=== PATIENT | female | born 2000 | race Caucasian/White ===

== ENCOUNTER 2023-04-23 15:23 | Emergency (ER) | payer BC, SELFPAY ==
[2023-04-23 15:38] VITALS: BP 112/86; PULSE 107; RESP 18; TEMP 36.6; O2SAT 100
--- NOTE | 2023-04-23 15:45 | ED.FEMALEGU ---
HPI - Female Genitourinary General Chief complaint: Urogenital-Female Stated complaint: UTI SYMPTOMS Time Seen by Provider: 04/23/23 15:45 Source: patient Mode of arrival: ambulatory Limitations: no limitations History of Present Illness HPI Narrative: 23-year-old female presents with complaint of urinary dysuria, frequency, urgency since yesterday. Afebrile. No abdominal or back pain. Patient reports she did home UTI test and was positive. No concern for . All systems reviewed and negative except as noted above. Related Data Home Medications Medication Instructions Recorded Confirmed etonogestrel 0.12 mg-ethinyl vag ring vaginal 04/23/23 estradiol 0.015 mg/24 hr vaginal ring metoprolol succinate 25 mg mg PO 04/23/23 tablet,extended release 24 hr sertraline 25 mg tablet mg 04/23/23 Allergies Allergy/AdvReac Type Severity Reaction Status Date / Time Penicillins Allergy Rash Verified 04/23/23 15:48 Review of Systems Review of Systems: CONSTITUTIONAL: Denies fever, chills, or sweats. EYES: Denies visual changes, redness, or discharge. ENT: Denies rhinorrhea, congestion, sore throat, or otalgia. CARDIOVASCULAR: Denies chest pain, palpitations, or edema. RESPIRATORY: Denies cough or dyspnea. GASTROINTESTINAL: Denies abdominal pain, nausea, vomiting, or diarrhea. GENITOURINARY: Reports dysuria, frequency, urgency. Denies hematuria. SKIN: Denies rash or itching. MUSCULOSKELETAL: Denies back pain, joint pain, or myalgia. NEUROLOGIC: Denies headache, numbness, or weakness. PSYCHIATRIC: Denies anxiety or depression. All other systems reviewed are negative, except as documented in HPI. PMFSH Comments At time of signature, agree with nursing past medical, surgical, social and family history. There is no relevant family history pertinent to the presenting complaint. Exam Narrative: GENERAL: This is a well-nourished, well-developed patient, in no apparent distress. HEAD: normocephalic, atraumatic. EYES: PERRL. Sclera clear/white. Vision is grossly intact. EARS: External ears normal NOSE: External nose normal NECK: Neck supple, non-tender without lymphadenopathy, masses or thyromegaly. CARDIOVASCULAR: Regular rate and rhythm without murmurs, gallops, or rubs. RESPIRATORY: Clear to auscultation. Breath sounds equal bilaterally. No wheezes, rales, or rhonchi. SKIN: warm, Dry, intact with no suspicious lesions or rash, good texture and turgor. NEURO: awake, alert, and oriented to person, place and time. There were no obvious focal neurologic abnormalities. EXTREMITIES: No joint tenderness, effusion, or edema noted. Course Course Level of Care: Express Care Visit Vital Signs Vital signs: Vital Signs Temperature 36.6 C 04/23/23 15:38 Pulse Rate 107 H 04/23/23 15:38 Respiratory Rate 18 04/23/23 15:38 Blood Pressure 112/86 04/23/23 15:38 Pulse Oximetry 100 04/23/23 15:38 Oxygen Delivery Room Air 04/23/23 15:38 Temperature 36.6 C 04/23/23 15:38 Pulse Rate 107 H 04/23/23 15:38 Respiratory Rate 18 04/23/23 15:38 Blood Pressure 112/86 04/23/23 15:38 Pulse Oximetry 100 04/23/23 15:38 Oxygen Delivery Room Air 04/23/23 15:38 Reviewed MDM - Female Genitourinary MDM Narrative Medical decision making narrative: Urinalysis normal. Will treat patient with antibiotics due to her symptoms, positive home test. Urine culture ordered. Patient is aware of diagnosis, understands and agrees to treatment plan. Anticipatory guidance given. Patient agrees to follow-up as directed and is aware of reasons to seek care at the emergency department. Portions of this record may have been created with voice recognition software Lab Data Labs: Urine Glucose Negative Reference Range: Negative Urine Bilirubin Negative Reference
== END 2023-04-23 16:39 | disposition home or self-care (01) ==
PROVIDERS: Emergency Provider Nurse Practitioner Family; PCP Physician Assistant
DX: N39.0 Urinary tract infection, site not specified (principal)
CPT/HCPCS: 81003; 87086; 99213; G0463